=== PATIENT | female | born 1945 | race Caucasian/White ===

== ENCOUNTER → 2024-01-30 | Emergency (ER) | payer MEDICARE, BC ==
[~2024-01-30] VITALS: Ht 165.1 cm; Wt 86.2 kg
[~2024-01-30] MED LIST: ACETAMINOPHEN 325 MG TABLET ONE; HYDR-3972 PO
[2024-01-30] MEDS: ACETAMINOPHEN 325 MG TABLET PO ONE (15:28)
[2024-01-30 16:52] VITALS: BP 164/76; O2SAT 98
== END | disposition home or self-care (01) ==
LOC: ER 15:10
DX: S16.1XXA Strain of muscle, fascia and tendon at neck level, initial encounter (principal); S50.312A Abrasion of left elbow, initial encounter; S09.8XXA Other specified injuries of head, initial encounter; I10 Essential (primary) hypertension; E11.9 Type 2 diabetes mellitus without complications; Z88.8 Allergy status to other drugs, medicaments and biological substances; Z91.041 Radiographic dye allergy status; W18.39XA Other fall on same level, initial encounter; Y93.89 Activity, other specified; Y92.89 Other specified places as the place of occurrence of the external cause; Y99.8 Other external cause status
CPT/HCPCS: 72125-TC; 73080-TC

== ENCOUNTER 2024-02-06 11:21 | Emergency (ER) | payer MEDICARE, BC ==
[~2024-02-06] VITALS: Ht 165.1 cm; Wt 86.2 kg
[~2024-02-06 11:21] MED LIST changes: -ACETAMINOPHEN 325 MG TABLET ONE
[2024-02-06 11:58] VITALS: BP 146/89; TEMP 98; O2SAT 98
== END 2024-02-06 13:09 | disposition home or self-care (01) ==
LOC: ER 11:38
DX: S01.81XD Laceration without foreign body of other part of head, subsequent encounter (principal); Z48.02 Encounter for removal of sutures; I10 Essential (primary) hypertension; E11.9 Type 2 diabetes mellitus without complications; Z79.891 Long term (current) use of opiate analgesic; Z88.1 Allergy status to other antibiotic agents; X58.XXXD Exposure to other specified factors, subsequent encounter

== ENCOUNTER 2024-04-10 14:15 | Emergency (ER) | payer MEDICARE, BC ==
[~2024-04-10] VITALS: Ht 165.1 cm; Wt 86.2 kg
[2024-04-10 15:59] LABS: APPEARANCE,URINE CLEAR (CLEAR); BILIRUBIN,URINE NEGATIVE (NEGATIVE); BLOOD, URINE NEGATIVE Ery/uL (NEGATIVE); COLOR,URINE YELLOW (YELLOW); KETONES,URINE NEGATIVE (NEGATIVE); LEUKOCYTE ESTERASE ,URINE 3+ (NEGATIVE); NITRITE, URINE NEGATIVE (NEGATIVE); PROTEIN,URINE NEGATIVE (NEGATIVE); UGLUCOSE TRACE mg/dL (NEGATIVE); UROBILINOGEN,URINE 0.2 EU/dL (0.2)
[2024-04-10 16:13] LABS: RBC,URINE NONE SEEN /HPF (0-2)
[2024-04-10 16:14] LABS: ADD URINE CULTURE YES; BACTERIA,URINE 1+ /HPF (None Seen)
[2024-04-10] MEDS ORDERED: LEVO500T90 PO (17:34)
[2024-04-10 18:46] VITALS: BP 140/82; TEMP 98.6; O2SAT 98
== END 2024-04-10 18:47 | disposition left against medical advice (07) ==
LOC: ER 14:24
DX: R42 Dizziness and giddiness (principal); N39.0 Urinary tract infection, site not specified; E11.65 Type 2 diabetes mellitus with hyperglycemia; I10 Essential (primary) hypertension; I67.82 Cerebral ischemia; Z86.73 Personal history of transient ischemic attack (TIA), and cerebral infarction without residual deficits; Z88.0 Allergy status to penicillin
CPT/HCPCS: 70450-TC; 81001; 82962-TC; 87086-TC